=== PATIENT | male | born 1980 ===

== ENCOUNTER 2023-11-05 08:16 | Outpatient (CLI) | payer OTHER | END 2023-11-05 08:28 | disposition home or self-care (01) | LOC: MRI 08:16 | PROVIDERS: ATTEND General Practice | DX: M54.2 Cervicalgia (principal); M54.50 Low back pain, unspecified; M54.6 Pain in thoracic spine; M54.12 Radiculopathy, cervical region | CPT/HCPCS: 72141 ==